=== PATIENT | male | born 1945 | race Hispanic/Latino ===

== ENCOUNTER 2020-10-22 13:30 | Inpatient (IN) | payer MEDICARE ==
--- NOTE | 2020-10-23 08:11 | History and Physical Report ---
GP History & Physical - History of Present Illness Date of admission: 10/22/20 Date of Examination: 10/23/20 Reason for Admission: Danger to self, Severe anxiety/depression History of Present Illness: PSYCH HPI Patient is a retired 75 year old female with PSHx of Depression and PMHx of CABG x3, restless leg syndorme, parkinsons, and HTN who was admitted to [facility] from another facility after suicide attempt by OD on tylenol up to 30 pills. Patient reports taking the action because he was bringing shame unto his family, and kids. Patient statees he is tired of haivng his family bear his problems and having to answer for him all the time. Patient states he currently has felony charges on him for child porn back in February, his out on bail now, but to avoid conviction he decided it would be best if he just and kill self so that way he wont be convicted and charges would dissappear. PAST PSYCHIATRIC HISTORY Diagnoses: Depression Suicide attempts or Self-harm behavior: yes Prior psychiatric hospitalizations: none Substance Abuse history: alcohol seldomly use Previous psychiatric medications tried: ZOloft Outpatient treatment: none PAST MEDICAL HISTORY: CABG x3, restless leg syndorme, parkinsons, and HTN Family Psychiatric History: None reported or documented SOCIAL HISTORY Marital Status: Living Arrangements: with Employment Status: retired Access to guns/weapons: none reported Education: masters History of Abuse: none Legal History: yes REVIEW OF SYSTEMS Constitutional: Negative for weight loss ENT: Negative for stridor Respiratory: Negative for cough or hemoptysis All other systems reviewed and are negative MENTAL STATUS EXAMINATION General Appearance and Behavior: Age appropriate, good hygiene, wearing appropriate clothes,, good eye contact Cooperation: Participating/engaged, but Guarded Psychomotor Behavior: Psychomotor normal Mood: depressed Affect and affective range: irritable, labile Thought Process: illogical Thought Content: hopelessness, helplessness Speech: Normal rate, volume and rythm Intellectual Functioning: Average Suicidal Ideation: SI Homicidal Ideation: Denies HI Impulse Control: Impaired Insight and Judgment: Limited insight and judgment Memory: Normal Attention: Normal Orientation: Alert, oriented Diagnoses: Treatment Plan Resume Zoloft Patient admitted for inpatient psychiatric evaluation, medication adjustment and close monitoring The patient's behavior, mood, sleep and appetite will be closely monitored. Patient enrolled in individual and group therapeutic sessions and encouraged to attend. Patient provided with a safe and structured environment. Patient's physical health needs will be addressed by the Hospitalist. Hospitalist Consulted Labs including CBC, CMP, Lipid profile and Hemoglobin A1C levels ordered for baseline reference Social Assessment will be completed and the Supervisor Contingents will work with patient and family to ensure a suitable and safe disposition Medication adjustment will be made as clinically indicated Usual Wellness Amish/Preservation: - Start Trazodone 50 mg po QHS & 50 mg po QHS PRN between 10 PM & 2 AM for insomnia - Start Melatonin 5 mg po QHS to promote circadian rhythm - Start [place]-3 for brain health, reduce impulsivity, and as adjunctive treatment for mood disorder, continue upon discharge given overall benefits. - Start B1 prophylaxis with 200 mg po for 5 days The patient agreed on the treatment plan, understood the risk, benefit, alternative treatment, potential consequence of no treatment, and gave informed consent. Initial Certification Inpatient psych services: I certify that the inpatient psychiatric services are required for treatment that could reasonably be expected to improve the patient's condition. Estimated days: 7 Post hospital care: primary care provider, psychiatric provider Legal Status: Other Reaction to Hospitalization: Denial Medications and Allergies Allergies Allergy/AdvReac Type Severity Reaction Status Date / Time No Known Allergies Allergy Unverified 10/22/20 16:39 Results - Results Labs/Vitals: Last Vital Signs Temp 98.6 F 10/23/20 03:46 Pulse 81 10/23/20 03:46 Resp 18 10/23/20 03:46 BP 146/84 10/23/20 03:46 Pulse Ox 97 10/23/20 03:46 Physical Examination - Constitutional Vitals: Vital Signs Temp Pulse Resp BP Pulse Ox 98.6 F 81 18 146/84 97 10/23/20 03:46 10/23/20 03:46 10/23/20 03:46 10/23/20 03:46 10/23/20 03:46 Temperature -Last 24 Hours Temperature 98.6 F Mental Status Exam - Vital signs Last Vital Signs Temp 98.6 F 10/23/20 03:46 Pulse 81 10/23/20 03:46 Resp 18 10/23/20 03:46 BP 146/84 10/23/20 03:46 Pulse Ox 97 10/23/20 03:46 Physician Certification - Certification Statement Physician Certification Statement: This is an acknowledgement statement that ANKIT WEST is a 75 year old M who requires inpatient psychiatric admission for treatment which could reasonably be expected to improve the patient's condition for Estimated period of time patient will need to remain in the hospital: [ ] Plan for post-hospital care: [ ]
[2020-10-23 10:08] LABS: Basophils % (Auto) 0.4 % (0.0-1.8); Eosinophils % (Auto) 0.1 % (0.0-4.3); Hematocrit 44.1 % (35.5-45.6); Lymphocytes % (Auto) 8.5 % (13.4-35.0); Mean Corpuscular HGB Conc 34 % (32-34); Mean Corpuscular Volume 89 fl (84-94); Monocytes % (Auto) 8.9 % (0.0-7.3); Platelet Count 195 K/mm3 (140-440); Red Blood Count 4.95 M/mm3 (3.65-5.03); Red Cell Distribution Width 13.4 % (13.2-15.2)
[2020-10-23 10:25] LABS: Alanine Aminotransferase 27 units/L (7-56); Albumin 3.7 g/dL (3.9-5); BUN/Creatinine Ratio 21; Blood Urea Nitrogen 17 mg/dL (9-20); Calcium 8.8 mg/dL (8.4-10.2); HDL Cholesterol 43 mg/dL (40-59); Hemolysis Index 29; LDL Cholesterol,Direct 74 mg/dL (50-130)
[2020-10-23] MEDS: SERTRALINE 50 MG TAB PO SCH (11:15)
--- NOTE | 2020-10-23 14:31 | Consultation ---
History of Present Illness - Reason for Consult Consult date: 10/23/20 Medical management Requesting physician: BONY JOHNSON - History of Present Illness 75 YO Male with Vascular Dementia with Behavioral Disturbance, Cerebral Atherosclerosis, HTN, CAD, Restless Leg Syndrome, Parkinsons Disease, Depression admitted to [facility] for Psychiatric stabilization. Consult placed by Dr. Johnson for medical management. The patient was seen and evaluated in his room. Patient resting. Patient denies fever, chills, chest pain, palpitation, productive cough, skin rash, recent ill contacts, or known exposure to COVID-19. No reported nursing events. Past History Past Medical History: CAD, hypertension, other (See HPI) Medications and Allergies Allergies Allergy/AdvReac Type Severity Reaction Status Date / Time No Known Allergies Allergy Unverified 10/22/20 16:39 Active Meds: Active Medications Melatonin (Melatonin 5 Mg Tab) 5 mg PO QHS PRN PRN Reason: Sleep Sertraline HCl (Sertraline 50 Mg Tab) 50 mg PO QDAY ERIKA Review of Systems Constitutional: no weight loss, no weight gain, no fever, no chills Ears, nose, mouth and throat: no ear pain, no ear discharge, no tinnitis, no decreased hearing Cardiovascular: no chest pain, no orthopnea, no edema, no lightheadedness Respiratory: no cough, no cough with sputum, no hemoptysis, no shortness of breath Gastrointestinal: no abdominal pain, no nausea, no vomiting Genitourinary Male: no hematuria, no flank pain, no discharge, no urinary frequency, no urinary hesitancy Rectal: no pain, no incontinence, no bleeding Musculoskeletal: no neck pain, no shooting arm pain, no low back pain, no leg numbness/tingling, no redness of joints Integumentary: no rash, no pruritis, no redness, no sores, no jaundice, no boils Neurological: no head injury, no paralysis, no weakness, no parathesias, no seizures, no tremors, no ataxia Psychiatric: depression, no change in appetite Endocrine: no cold intolerance, no heat intolerance, no polyphagia, no excessive thirst, no polyuria, no nocturia, no excessive sweating Hematologic/Lymphatic: no easy bruising, no easy bleeding, no lymphedema Allergic/Immunologic: no urticaria, no allergic rhinitis, no persistent infections, no angioedema Exam - Constitutional Vitals: Temp Pulse Resp BP Pulse Ox 98.7 F 95 H 16 117/73 97 10/23/20 07:43 10/23/20 07:43 10/23/20 07:43 10/23/20 07:43 10/23/20 07:43 General appearance: Present: no acute distress, well-nourished - EENT Eyes: Present: PERRL ENT: hearing intact, clear oral mucosa - Neck Neck: Present: supple, normal ROM - Respiratory Respiratory effort: normal Respiratory: bilateral: CTA - Cardiovascular Heart Sounds: Present: S1 & S2. Absent: rub, click - Extremities Extremities: pulses symmetrical, No edema Peripheral Pulses: within normal limits - Abdominal General gastrointestinal: Present: soft, non-tender, non-distended, normal bowel sounds Male genitourinary: Present: normal - Integumentary Integumentary: Present: clear, warm, dry - Musculoskeletal Musculoskeletal: gait normal, strength equal bilaterally - Psychiatric Psychiatric: appropriate mood/affect, intact judgment & insight - Neurologic Neurologic: CNII-XII intact, moves all extremities Results - Labs CBC & Chem 7: 10/23/20 09:43 10/23/20 09:43 Labs: Abnormal lab results 10/23/20 10/23/20 Range/Units 09:43 09:43 WBC 11.4 H (4.5-11.0) K/mm3 Lymph % (Auto) 8.5 L (13.4-35.0) % [place] % (Auto) 8.9 H (0.0-7.3) % Lymph # (Auto) 1.0 L (1.2-5.4) K/mm3 [place] # (Auto) 1.0 H (0.0-0.8) K/mm3 Seg Neutrophils % 82.1 H (40.0-70.0) % Seg Neutrophils # 9.3 H (1.8-7.7) K/mm3 Glucose 130 H (75-100) mg/dL Total Bilirubin 2.20 H (0.1-1.2) mg/dL AST 74 H (5-40) units/L Albumin 3.7 L (3.9-5) g/dL Assessment and Plan - Patient Problems (1) Hypertension Current Visit: Yes Status: Acute Qualifiers: Hypertension type: essential hypertension Qualified Code(s): I10 - Essential (primary) hypertension Plan to address problem: Monitor blood pressure every shift, continue medical management. (2) CAD (coronary artery disease) Current Visit: Yes Status: Acute Qualifiers: Associated angina: without angina Plan to address problem: Risk factor reduction, supportive care, antiplatelet therapy as clinically indicated. (3) Vascular dementia with behavioral disturbance Current Visit: Yes Status: Acute Plan to address problem: Verbal prompting, verbal redirection, benzodiazepine therapy as clinically indicated. (4) Cerebral atherosclerosis Current Visit: Yes Status: Acute Plan to address problem: Supportive care, antiplatelet therapy as clinically indicated, risk factor reduction.
[2020-10-23] MEDS ORDERED: CARBIDOPA/LEVODOPA 25-100 MG TAB PO SCH (22:00)
[2020-10-23] MEDS: GABAPENTIN 400 MG CAP PO SCH (22:56)
[2020-10-23] MEDS: LEVODOPA PO SCH (22:57)
[2020-10-23] MEDS: CARBIDOPA PO SCH (22:57)
[2020-10-23] MEDS: METOPROLOL SUCCINATE XL 50 MG TAB PO SCH (22:58)
[2020-10-23] MEDS ORDERED: traZODone 50 MG TAB PO ONE (23:30)
[2020-10-24] MEDS: CARBIDOPA PO SCH ×3 (10:58→20:50)
[2020-10-24] MEDS: LEVODOPA PO SCH ×3 (10:58→20:50)
[2020-10-24] MEDS: GABAPENTIN 400 MG CAP PO SCH ×3 (10:59→20:50)
[2020-10-24] MEDS: ASPIRIN 81 MG TAB CHEW PO SCH (10:59)
[2020-10-24] MEDS: SERTRALINE 50 MG TAB PO SCH (10:59)
[2020-10-24] MEDS: METOPROLOL SUCCINATE XL 50 MG TAB PO SCH (11:00)
--- NOTE | 2020-10-24 14:51 | Progress Note ---
Subjective Date of service: 10/24/20 Principal diagnosis: MDD Subjective Comment: Psych Nurse: Received patient at 1900 on 10/23. He had been placed on 1:1 observation due to his restlessness and inability to be still. The patient has an unsteady gait is not oriented to his ability. He will quickly jump out of a chair after agreeing to sit still. Last evening he was cooperative with his caregiver. He presents as confused. His appetite is poor. Patient denies hi/ah/vh but is still depressed regarding his health and his ability to care for himself. 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 Patient admitted to feeling helpless regarding "fixing" his health. He had a fair appetite. Patient was medication compliant. Hospitalist was called to get his medical medications ordered. Dr Karimi gave orders for Dr. Peguero to restart gabapentin, metoprolol, atorvastin, aspirin, and trazodone 50 mg x 1. Patient expressed he usually took requip for RLS but could not remember to dose. Overnight the patient rested quietly. He slept 8 hours. Will continue to monitor patient for safety. Psych Progress Patient states that he would like to be discharged home, because he is not getting all of the medication is supposed to get especially his restless leg syndrome medication in which patient does not know the name at this moment. Pt was seen by the hospitalist yesterday we will reconcilled patient's medications. Patient denies being depressed or having any suicidal thoughts at this moment REVIEW OF SYSTEMS Constitutional: Negative for weight loss ENT: Negative for stridor Respiratory: Negative for cough or hemoptysis All other systems reviewed and are negative MENTAL STATUS EXAMINATION General Appearance and Behavior: Age appropriate, good hygiene, wearing appropriate clothes,, good eye contact Cooperation: Participating/engaged, but Guarded Psychomotor Behavior: Psychomotor normal Mood: just ok Affect and affective range: flat Thought Process: logical Thought Content: within reality Speech: Normal rate, volume and rythm Intellectual Functioning: Average Suicidal Ideation: denies Homicidal Ideation: Denies HI Impulse Control: Impaired Insight and Judgment: Limited insight and judgment Memory: Normal Attention: Normal Orientation: Alert, oriented Assessment and Plan - Patient Problems (1) MDD (major depressive disorder) Current Visit: Yes Status: Acute F32.9 Treatment Plan Resume Zoloft Patient admitted for inpatient psychiatric evaluation, medication adjustment and close monitoring The patient's behavior, mood, sleep and appetite will be closely monitored. Patient enrolled in individual and group therapeutic sessions and encouraged to attend. Patient provided with a safe and structured environment. Patient's physical health needs will be addressed by the Hospitalist. Hospitalist Consulted Labs including CBC, CMP, Lipid profile and Hemoglobin A1C levels ordered for baseline reference Social Assessment will be completed and the Bat Carrier will work with patient and family to ensure a suitable and safe disposition Medication adjustment will be made as clinically indicated Usual Wellness Catholic/Preservation: - Start Trazodone 50 mg po QHS & 50 mg po QHS PRN between 10 PM & 2 AM for ins omnia - Start Melatonin 5 mg po QHS to promote circadian rhythm - Start [place]-3 for brain health, reduce impulsivity, and as adjunctive treatment for mood disorder, continue upon discharge given overall benefits. - Start B1 prophylaxis with 200 mg po for 5 days The patient agreed on the treatment plan, understood the risk, benefit, alternative treatment, potential consequence of no treatment, and gave informed consent. Initial Certification Inpatient psych services: I certify that the inpatient psychiatric services are required for treatment that could reasonably be expected to improve the patient's condition. Estimated days: 6 Post hospital care: primary care provider, psychiatric provider Assessment and Plan - Patient Problems (1) MDD (major depressive disorder) Current Visit: Yes Status: Acute Medications and Allergies Allergies Allergy/AdvReac Type Severity Reaction Status Date / Time No Known Allergies Allergy Unverified 10/22/20 16:39 Home Medications Medication Instructions Recorded Confirmed Last Taken Type Aspirin EC [Halfprin EC] 81 mg PO QDAY 10/24/20 10/24/20 Unknown History AtorvaSTATin [Lipitor] 20 mg PO QHS 10/24/20 10/24/20 Unknown History Carbidopa/Levodopa ER 50-200 2 each PO TID 10/24/20 10/24/20 Unknown History [Sinemet ER 50/200] Metoprolol Xl [Metoprolol 25 mg PO QDAY 10/24/20 10/24/20 Unknown History SUCCINATE ER TAB] rOPINIRole [Requip] 1 mg PO BID 10/24/20 10/24/20 Unknown History Active Meds: Active Medications Aspirin (Aspirin 81 Mg Tab Chew) 81 mg PO QDAY ERIKA Atorvastatin Calcium (Atorvastatin 20 Mg Tab) 20 mg PO QHS ERIKA Carbidopa/Levodopa (Carbidopa/Levodopa Er 50-200 Mg Tab) 2 each PO TID [facility] Last Admin: 10/23/20 22:57 Dose: 2 each Documented by: Gabapentin (Gabapentin 400 Mg Cap) 400 mg PO TID [facility] Last Admin: 10/23/20 22:56 Dose: 400 mg Documented by: Melatonin (Melatonin 5 Mg Tab) 5 mg PO QHS PRN PRN Reason: Sleep Metoprolol Succinate (Metoprolol Succinate Xl 50 Mg Tab) 25 mg PO QDAY [facility] Last Admin: 10/23/20 22:58 Dose: 25 mg Documented by: Sertraline HCl (Sertraline 50 Mg Tab) 50 mg PO QDAY [facility] Last Admin: 10/23/20 11:15 Dose: 50 mg Documented by: Results - Results Labs/Vitals: Laboratory Last Values WBC 11.4 K/mm3 (4.5-11.0) H 10/23/20 09:43 RBC 4.95 M/mm3 (3.65-5.03) 10/23/20 09:43 Hgb 15.0 gm/dl (11.8-15.2) 10/23/20 09:43 Hct 44.1 % (35.5-45.6) 10/23/20 09:43 MCV 89 fl (84-94) 10/23/20 09:43 MCH 30 pg (28-32) 10/23/20 09:43 MCHC 34 % (32-34) 10/23/20 09:43 RDW 13.4 % (13.2-15.2) 10/23/20 09:43 Plt Count 195 K/mm3 (140-440) 10/23/20 09:43 Lymph % (Auto) 8.5 % (13.4-35.0) L 10/23/20 09:43 [place] % (Auto) 8.9 % (0.0-7.3) H 10/23/20 09:43 Eos % (Auto) 0.1 % (0.0-4.3) 10/23/20 09:43 Baso % (Auto) 0.4 % (0.0-1.8) 10/23/20 09:43 Lymph # (Auto) 1.0 K/mm3 (1.2-5.4) L 10/23/20 09:43 [place] # (Auto) 1.0 K/mm3 (0.0-0.8) H 10/23/20 09:43 Eos # (Auto) 0.0 K/mm3 (0.0-0.4) 10/23/20 09:43 Baso # (Auto) 0.0 K/mm3 (0.0-0.1) 10/23/20 09:43 Seg Neutrophils % 82.1 % (40.0-70.0) H 10/23/20 09:43 Seg Neutrophils # 9.3 K/mm3 (1.8-7.7) H 10/23/20 09:43 Sodium 140 mmol/L (137-145) 10/23/20 09:43 Potassium 4.0 mmol/L (3.6-5.0) 10/23/20 09:43 Chloride 101.5 mmol/L (98-107) 10/23/20 09:43 Carbon Dioxide 30 mmol/L (22-30) 10/23/20 09:43 Anion Gap 13 mmol/L 10/23/20 09:43 BUN 17 mg/dL (9-20) 10/23/20 09:43 Creatinine 0.8 mg/dL (0.8-1.3) 10/23/20 09:43 Estimated GFR > 60 ml/min 10/23/20 09:43 BUN/Creatinine Ratio 21 % 10/23/20 09:43 Glucose 130 mg/dL (75-100) H 10/23/20 09:43 Hemoglobin A1c 5.6 % (4-6) 10/23/20 09:43 Calcium 8.8 mg/dL (8.4-10.2) 10/23/20 09:43 Total Bilirubin 2.20 mg/dL (0.1-1.2) H 10/23/20 09:43 AST 74 units/L (5-40) H 10/23/20 09:43 ALT 27 units/L (7-56) 10/23/20 09:43 Alkaline Phosphatase 97 units/L (35-129) 10/23/20 09:43 Total Protein 6.7 g/dL (6.3-8.2) 10/23/20 09:43 Albumin 3.7 g/dL (3.9-5) L 10/23/20 09:43 Albumin/Globulin Ratio 1.2 % 10/23/20 09:43 Triglycerides 82 mg/dL (2-149) 10/23/20 09:43 Cholesterol 125 mg/dL (50-199) 10/23/20 09:43 LDL Cholesterol Direct 74 mg/dL (50-130) 10/23/20 09:43 HDL Cholesterol 43 mg/dL (40-59) 10/23/20 09:43 Cholesterol/HDL Ratio 2.90 % 10/23/20 09:43 Last Vital Signs Temp 100 F H 10/23/20 22:00 Pulse 100 H 10/23/20 22:58 Resp 18 10/23/20 22:00 BP 126/71 10/23/20 22:58 Pulse Ox 95 10/23/20 22:00
--- NOTE | 2020-10-25 10:09 | Progress Note ---
Subjective Date of service: 10/25/20 Principal diagnosis: MDD Subjective Comment: Psych Nurse: Patient is awake alert oriented to name, unsteady gait, pt is not oriented to his ability. He will quickly jump out of a chair after agreeing to sit. He presents as confused. His appetite is good, he denies si/hi/ah/vh, he was medication compliant. Currently siting in the dayroom watching tv, sitter at side. Will continue to monitor patient for safety. Psych Progress Patient seen this a.m., reports feeling very good and endorses sleeping very well overnight. Patient states that restless leg has been bothering him for the last 3 days since he has been without his medication but seems like yesterday and it was the first time he got a pretty good sleep. Patient reports speaking with , says he was very glad he was able to reach his states that he is not feeling depressed or suicidal at the moment, he would like to be discharged today he can continue his outpatient therapy at [facility] services back in [place] Reason for continuing acute inpatient psychiatric hospitalization: Planning for safety discharge at this time with outpatient therapy. REVIEW OF SYSTEMS Constitutional: Negative for weight loss ENT: Negative for stridor Respiratory: Negative for cough or hemoptysis All other systems reviewed and are negative MENTAL STATUS EXAMINATION General Appearance and Behavior: Age appropriate, good hygiene, wearing appropriate clothes,, good eye contact Cooperation: Participating/engaged, but Guarded Psychomotor Behavior: Psychomotor normal Mood: just ok Affect and affective range: flat Thought Process: logical Thought Content: within reality Speech: Normal rate, volume and rythm Intellectual Functioning: Average Suicidal Ideation: denies Homicidal Ideation: Denies HI Impulse Control: Impaired Insight and Judgment: Limited insight and judgment Memory: Normal Attention: Normal Orientation: Alert, oriented Assessment and Plan - Patient Problems (1) MDD (major depressive disorder) Current Visit: Yes Status: Acute F32.9 Treatment Plan Resume Zoloft Patient admitted for inpatient psychiatric evaluation, medication adjustment and close monitoring The patient's behavior, mood, sleep and appetite will be closely monitored. Patient enrolled in individual and group therapeutic sessions and encouraged to attend. Patient provided with a safe and structured environment. Patient's physical health needs will be addressed by the Hospitalist. Hospitalist Consulted Labs including CBC, CMP, Lipid profile and Hemoglobin A1C levels ordered for baseline reference Social Assessment will be completed and the Bicycle Messenger will work with jacob ent and family to ensure a suitable and safe disposition Medication adjustment will be made as clinically indicated Usual Wellness Mosque/Preservation: - Start Trazodone 50 mg po QHS & 50 mg po QHS PRN between 10 PM & 2 AM for insomnia - Start Melatonin 5 mg po QHS to promote circadian rhythm - Start [place]-3 for brain health, reduce impulsivity, and as adjunctive treatment for mood disorder, continue upon discharge given overall benefits. - Start B1 prophylaxis with 200 mg po for 5 days The patient agreed on the treatment plan, understood the risk, benefit, alternative treatment, potential consequence of no treatment, and gave informed consent. Initial Certification Inpatient psych services: I certify that the inpatient psychiatric services are required for treatment that could reasonably be expected to improve the patient's condition. Estimated days: 5 Post hospital care: primary care provider, psychiatric provider Assessment and Plan - Patient Problems (1) MDD (major depressive disorder) Current Visit: Yes Status: Acute Medications and Allergies Allergies Allergy/AdvReac Type Severity Reaction Status Date / Time No Known Allergies Allergy Unverified 10/22/20 16:39 Home Medications Medication Instructions Recorded Confirmed Last Taken Type Aspirin EC [Halfprin EC] 81 mg PO QDAY 10/24/20 10/24/20 Unknown History AtorvaSTATin [Lipitor] 20 mg PO QHS 10/24/20 10/24/20 Unknown History Carbidopa/Levodopa ER 50-200 2 each PO TID 10/24/20 10/24/20 Unknown History [Sinemet ER 50/200] Metoprolol Xl [Metoprolol 25 mg PO QDAY 10/24/20 10/24/20 Unknown History SUCCINATE ER TAB] rOPINIRole [Requip] 1 mg PO BID 10/24/20 10/24/20 Unknown History Active Meds: Active Medications Aspirin (Aspirin 81 Mg Tab Chew) 81 mg PO QDAY [facility] Last Admin: 10/24/20 10:59 Dose: 81 mg Documented by: Atorvastatin Calcium (Atorvastatin 20 Mg Tab) 20 mg PO QHS [facility] Last Admin: 10/24/20 21:30 Dose: 20 mg Documented by: Carbidopa/Levodopa (Carbidopa/Levodopa Er 50-200 Mg Tab) 2 each PO TID [facility] Last Admin: 10/24/20 20:50 Dose: 2 each Documented by: Gabapentin (Gabapentin 400 Mg Cap) 400 mg PO TID [facility] Last Admin: 10/24/20 20:50 Dose: 400 mg Documented by: Melatonin (Melatonin 5 Mg Tab) 5 mg PO QHS PRN PRN Reason: Sleep Metoprolol Succinate (Metoprolol Succinate Xl 50 Mg Tab) 25 mg PO QDAY [facility] Last Admin: 10/24/20 11:00 Dose: Not Given Documented by: Sertraline HCl (Sertraline 50 Mg Tab) 50 mg PO QDAY [facility] Last Admin: 10/24/20 10:59 Dose: 50 mg Documented by: Results - Results Labs/Vitals: Laboratory Last Values WBC 11.4 K/mm3 (4.5-11.0) H 10/23/20 09:43 RBC 4.95 M/mm3 (3.65-5.03) 10/23/20 09:43 Hgb 15.0 gm/dl (11.8-15.2) 10/23/20 09:43 Hct 44.1 % (35.5-45.6) 10/23/20 09:43 MCV 89 fl (84-94) 10/23/20 09:43 MCH 30 pg (28-32) 10/23/20 09:43 MCHC 34 % (32-34) 10/23/20 09:43 RDW 13.4 % (13.2-15.2) 10/23/20 09:43 Plt Count 195 K/mm3 (140-440) 10/23/20 09:43 Lymph % (Auto) 8.5 % (13.4-35.0) L 10/23/20 09:43 [place] % (Auto) 8.9 % (0.0-7.3) H 10/23/20 09:43 Eos % (Auto) 0.1 % (0.0-4.3) 10/23/20 09:43 Baso % (Auto) 0.4 % (0.0-1.8) 10/23/20 09:43 Lymph # (Auto) 1.0 K/mm3 (1.2-5.4) L 10/23/20 09:43 [place] # (Auto) 1.0 K/mm3 (0.0-0.8) H 10/23/20 09:43 Eos # (Auto) 0.0 K/mm3 (0.0-0.4) 10/23/20 09:43 Baso # (Auto) 0.0 K/mm3 (0.0-0.1) 10/23/20 09:43 Seg Neutrophils % 82.1 % (40.0-70.0) H 10/23/20 09:43 Seg Neutrophils # 9.3 K/mm3 (1.8-7.7) H 10/23/20 09:43 Sodium 140 mmol/L (137-145) 10/23/20 09:43 Potassium 4.0 mmol/L (3.6-5.0) 10/23/20 09:43 Chloride 101.5 mmol/L (98-107) 10/23/20 09:43 Carbon Dioxide 30 mmol/L (22-30) 10/23/20 09:43 Anion Gap 13 mmol/L 10/23/20 09:43 BUN 17 mg/dL (9-20) 10/23/20 09:43 Creatinine 0.8 mg/dL (0.8-1.3) 10/23/20 09:43 Estimated GFR > 60 ml/min 10/23/20 09:43 BUN/Creatinine Ratio 21 % 10/23/20 09:43 Glucose 130 mg/dL (75-100) H 10/23/20 09:43 Hemoglobin A1c 5.6 % (4-6) 10/23/20 09:43 Calcium 8.8 mg/dL (8.4-10.2) 10/23/20 09:43 Total Bilirubin 2.20 mg/dL (0.1-1.2) H 10/23/20 09:43 AST 74 units/L (5-40) H 10/23/20 09:43 ALT 27 units/L (7-56) 10/23/20 09:43 Alkaline Phosphatase 97 units/L (35-129) 10/23/20 09:43 Total Protein 6.7 g/dL (6.3-8.2) 10/23/20 09:43 Albumin 3.7 g/dL (3.9-5) L 10/23/20 09:43 Albumin/Globulin Ratio 1.2 % 10/23/20 09:43 Triglycerides 82 mg/dL (2-149) 10/23/20 09:43 Cholesterol 125 mg/dL (50-199) 10/23/20 09:43 LDL Cholesterol Direct 74 mg/dL (50-130) 10/23/20 09:43 HDL Cholesterol 43 mg/dL (40-59) 10/23/20 09:43 Cholesterol/HDL Ratio 2.90 % 10/23/20 09:43 Last Vital Signs Temp 100.4 F H 10/24/20 10:02 Pulse 93 H 10/24/20 11:00 Resp 20 10/24/20 10:02 BP 103/56 10/24/20 11:00 Pulse Ox 96 10/24/20 10:02
[2020-10-25] MEDS: GABAPENTIN 400 MG CAP PO SCH ×3 (10:54→22:31)
[2020-10-25] MEDS: ASPIRIN 81 MG TAB CHEW PO SCH (10:54)
[2020-10-25] MEDS: SERTRALINE 50 MG TAB PO SCH (10:54)
[2020-10-25] MEDS: LEVODOPA PO SCH ×3 (10:55→22:31)
[2020-10-25] MEDS: CARBIDOPA PO SCH ×3 (10:55→22:31)
[2020-10-25] MEDS: METOPROLOL SUCCINATE XL 50 MG TAB PO SCH (10:55)
[2020-10-26] MEDS: GABAPENTIN 400 MG CAP PO SCH ×3 (08:09→22:00)
[2020-10-26] MEDS: LEVODOPA PO SCH ×3 (08:11→22:00)
[2020-10-26] MEDS: CARBIDOPA PO SCH ×3 (08:11→22:00)
--- NOTE | 2020-10-26 08:56 | Progress Note ---
Subjective Date of service: 10/26/20 Principal diagnosis: MDD Subjective Comment: Psych Nurse: Patient slept late this morning. He spent the day in the activity room interacting with his peers. He missed breakfast but ate lunch and dinner. The patient denies si/hi/ah/vh. He is medication compliant. Will continue to monitor patient for safety. Psych Progress Patient seen this AM in bed, complaints of not showerring in over a week, though he states wet towel was used to clean him up which is okay but for him, he still would like to shower. Patient describes a good and stable mood, denies being depressed or excessively nervous. Patient eats and sleeps well. Patient denies panic attacks, recurrent nightmares or flashbacks. Patient denies symptoms suggestive of OCD or PTSD. Patient denies hallucinations, paranoia, thought interference and no features suggestive of hypomania or solomon. Patiently completely denies suicidal or homicidal thoughts. Reason for continuing acute inpatient psychiatric hospitalization: Planning for safety discharge at this time with outpatient therapy. REVIEW OF SYSTEMS Constitutional: Negative for weight loss ENT: Negative for stridor Respiratory: Negative for cough or hemoptysis All other systems reviewed and are negative MENTAL STATUS EXAMINATION General Appearance and Behavior: Age appropriate, good hygiene, wearing appropriate clothes,, good eye contact Cooperation: Participating/engaged, but Guarded Psychomotor Behavior: Psychomotor normal Mood: just ok Affect and affective range: flat Thought Process: logical Thought Content: within reality Speech: Normal rate, volume and rythm Intellectual Functioning: Average Suicidal Ideation: denies Homicidal Ideation: Denies HI Impulse Control: Impaired Insight and Judgment: Limited insight and judgment Memory: Normal Attention: Normal Orientation: Alert, oriented Assessment and Plan - Patient Problems (1) MDD (major depressive disorder) Current Visit: Yes Status: Acute F32.9 Treatment Plan Resume Zoloft Patient admitted for inpatient psychiatric evaluation, medication adjustment and close monitoring The patient's behavior, mood, sleep and appetite will be closely monitored. Patient enrolled in individual and group therapeutic sessions and encouraged to attend. Patient provided with a safe and structured environment. Patient's physical health needs will be addressed by the Hospitalist. Hospitalist Consulted Labs including CBC, CMP, Lipid profile and Hemoglobin A1C levels ordered for baseline reference Social Assessment will be completed and the Solar Water Heater Installer will work with patient and family to ensure a suitable and safe disposition Medication adjustment will be made as clinically indicated Usual Wellness Christianity/Preservation: - Start Trazodone 50 mg po QHS & 50 mg po QHS PRN between 10 PM & 2 AM for insomnia - Start Melatonin 5 mg po QHS to promote circadian rhythm - Start [place]-3 for brain health, reduce impulsivity, and as adjunctive treatment for mood disorder, continue upon discharge given overall benefits. - Start B1 prophylaxis with 200 mg po for 5 days The patient agreed on the treatment plan, understood the risk, benefit, alternative treatment, potential consequence of no treatment, and gave informed consent. Initial Certification Inpatient psych services: I certify that the inpatient psychiatric services are required for treatment that could reasonably be expected to improve the patient's condition. Estimated days: 4 Post hospital care: primary care provider, psychiatric provider Assessment and Plan - Patient Problems (1) MDD (major depressive disorder) Current Visit: Yes Status: Acute Medications and Allergies Allergies Allergy/AdvReac Type Severity Reaction Status Date / Time No Known Allergies Allergy Unverified 10/22/20 16:39 Home Medications Medication Instructions Recorded Confirmed Last Taken Type Aspirin EC [Halfprin EC] 81 mg PO QDAY 10/24/20 10/24/20 Unknown History AtorvaSTATin [Lipitor] 20 mg PO QHS 10/24/20 10/24/20 Unknown History Carbidopa/Levodopa ER 50-200 2 each PO TID 10/24/20 10/24/20 Unknown History [Sinemet ER 50/200] Metoprolol Xl [Metoprolol 25 mg PO QDAY 10/24/20 10/24/20 Unknown History SUCCINATE ER TAB] rOPINIRole [Requip] 1 mg PO BID 10/24/20 10/24/20 Unknown History Active Meds: Active Medications Aspirin (Aspirin 81 Mg Tab Chew) 81 mg PO QDAY [facility] Last Admin: 10/25/20 10:54 Dose: 81 mg Documented by: Atorvastatin Calcium (Atorvastatin 20 Mg Tab) 20 mg PO QHS [facility] Last Admin: 10/25/20 22:30 Dose: 20 mg Documented by: Carbidopa/Levodopa (Carbidopa/Levodopa Er 50-200 Mg Tab) 2 each PO TID [facility] Last Admin: 10/25/20 22:31 Dose: 2 each Documented by: Gabapentin (Gabapentin 400 Mg Cap) 400 mg PO TID [facility] Last Admin: 10/25/20 22:31 Dose: 400 mg Documented by: Melatonin (Melatonin 5 Mg Tab) 5 mg PO QHS PRN PRN Reason: Sleep Metoprolol Succinate (Metoprolol Succinate Xl 50 Mg Tab) 25 mg PO QDAY [facility] Last Admin: 10/25/20 10:55 Dose: 25 mg Documented by: Sertraline HCl (Sertraline 50 Mg Tab) 50 mg PO QDAY [facility] Last Admin: 10/25/20 10:54 Dose: 50 mg Documented by: Results - Results Labs/Vitals: Laboratory Last Values WBC 11.4 K/mm3 (4.5-11.0) H 10/23/20 09:43 RBC 4.95 M/mm3 (3.65-5.03) 10/23/20 09:43 Hgb 15.0 gm/dl (11.8-15.2) 10/23/20 09:43 Hct 44.1 % (35.5-45.6) 10/23/20 09:43 MCV 89 fl (84-94) 10/23/20 09:43 MCH 30 pg (28-32) 10/23/20 09:43 MCHC 34 % (32-34) 10/23/20 09:43 RDW 13.4 % (13.2-15.2) 10/23/20 09:43 Plt Count 195 K/mm3 (140-440) 10/23/20 09:43 Lymph % (Auto) 8.5 % (13.4-35.0) L 10/23/20 09:43 [place] % (Auto) 8.9 % (0.0-7.3) H 10/23/20 09:43 Eos % (Auto) 0.1 % (0.0-4.3) 10/23/20 09:43 Baso % (Auto) 0.4 % (0.0-1.8) 10/23/20 09:43 Lymph # (Auto) 1.0 K/mm3 (1.2-5.4) L 10/23/20 09:43 [place] # (Auto) 1.0 K/mm3 (0.0-0.8) H 10/23/20 09:43 Eos # (Auto) 0.0 K/mm3 (0.0-0.4) 10/23/20 09:43 Baso # (Auto) 0.0 K/mm3 (0.0-0.1) 10/23/20 09:43 Seg Neutrophils % 82.1 % (40.0-70.0) H 10/23/20 09:43 Seg Neutrophils # 9.3 K/mm3 (1.8-7.7) H 10/23/20 09:43 Sodium 140 mmol/L (137-145) 10/23/20 09:43 Potassium 4.0 mmol/L (3.6-5.0) 10/23/20 09:43 Chloride 101.5 mmol/L (98-107) 10/23/20 09:43 Carbon Dioxide 30 mmol/L (22-30) 10/23/20 09:43 Anion Gap 13 mmol/L 10/23/20 09:43 BUN 17 mg/dL (9-20) 10/23/20 09:43 Creatinine 0.8 mg/dL (0.8-1.3) 10/23/20 09:43 Estimated GFR > 60 ml/min 10/23/20 09:43 BUN/Creatinine Ratio 21 % 10/23/20 09:43 Glucose 130 mg/dL (75-100) H 10/23/20 09:43 Hemoglobin A1c 5.6 % (4-6) 10/23/20 09:43 Calcium 8.8 mg/dL (8.4-10.2) 10/23/20 09:43 Total Bilirubin 2.20 mg/dL (0.1-1.2) H 10/23/20 09:43 AST 74 units/L (5-40) H 10/23/20 09:43 ALT 27 units/L (7-56) 10/23/20 09:43 Alkaline Phosphatase 97 units/L (35-129) 10/23/20 09:43 Total Protein 6.7 g/dL (6.3-8.2) 10/23/20 09:43 Albumin 3.7 g/dL (3.9-5) L 10/23/20 09:43 Albumin/Globulin Ratio 1.2 % 10/23/20 09:43 Triglycerides 82 mg/dL (2-149) 10/23/20 09:43 Cholesterol 125 mg/dL (50-199) 10/23/20 09:43 LDL Cholesterol Direct 74 mg/dL (50-130) 10/23/20 09:43 HDL Cholesterol 43 mg/dL (40-59) 10/23/20 09:43 Cholesterol/HDL Ratio 2.90 % 10/23/20 09:43 Last Vital Signs Temp 99.3 F 10/25/20 20:08 Pulse 94 H 10/25/20 20:08 Resp 20 10/25/20 20:08 BP 138/75 10/25/20 20:08 Pulse Ox 96 10/25/20 20:08
[2020-10-26] MEDS: ASPIRIN 81 MG TAB CHEW PO SCH (09:33)
[2020-10-26] MEDS: SERTRALINE 50 MG TAB PO SCH (09:33)
[2020-10-26] MEDS: METOPROLOL SUCCINATE XL 50 MG TAB PO SCH (09:35)
--- NOTE | 2020-10-26 20:32 | Progress Note ---
Assessment and Plan - Patient Problems (1) Hypertension Current Visit: Yes Status: Acute Qualifiers: Hypertension type: essential hypertension Qualified Code(s): I10 - Essential (primary) hypertension Plan to address problem: Monitor blood pressure every shift, continue medical management. (2) CAD (coronary artery disease) Current Visit: Yes Status: Acute Qualifiers: Associated angina: without angina Plan to address problem: Risk factor reduction, supportive care, antiplatelet therapy as clinically indicated. (3) Vascular dementia with behavioral disturbance Current Visit: Yes Status: Acute Plan to address problem: Verbal prompting, verbal redirection, benzodiazepine therapy as clinically indicated. (4) Cerebral atherosclerosis Current Visit: Yes Status: Acute Plan to address problem: Supportive care, antiplatelet therapy as clinically indicated, risk factor redu ction. History Interval history: 75 YO Male with Vascular Dementia with Behavioral Disturbance, Cerebral Atherosclerosis, HTN, CAD, Restless Leg Syndrome, Parkinsons Disease, Depression admitted to [facility] for Psychiatric stabilization. The patient was seen and evaluated in his room. Patient resting. No reported nursing events. Hospitalist Physical - Constitutional Vitals: Temp Pulse Resp BP Pulse Ox 100.1 F H 85 18 126/72 95 10/26/20 10:54 10/26/20 10:54 10/26/20 10:54 10/26/20 10:54 10/26/20 10:54 General appearance: Present: no acute distress, well-nourished - EENT Eyes: Present: PERRL, EOM intact ENT: hearing intact, hearing decreased - Neck Neck: Present: supple - Respiratory Respiratory effort: normal Respiratory: bilateral: CTA - Cardiovascular Rhythm: regular Heart Sounds: Present: S1 & S2 - Extremities Extremities: no ischemia Peripheral Pulses: within normal limits - Abdominal General gastrointestinal: soft, non-tender, non-distended - Integumentary Integumentary: Present: clear, dry - Psychiatric Psychiatric: cooperative - Neurologic Neurologic: CNII-XII intact Results - Labs CBC & Chem 7: 10/23/20 09:43 10/23/20 09:43 Labs: Laboratory Last Values WBC 11.4 K/mm3 (4.5-11.0) H 10/23/20 09:43 RBC 4.95 M/mm3 (3.65-5.03) 10/23/20 09:43 Hgb 15.0 gm/dl (11.8-15.2) 10/23/20 09:43 Hct 44.1 % (35.5-45.6) 10/23/20 09:43 MCV 89 fl (84-94) 10/23/20 09:43 MCH 30 pg (28-32) 10/23/20 09:43 MCHC 34 % (32-34) 10/23/20 09:43 RDW 13.4 % (13.2-15.2) 10/23/20 09:43 Plt Count 195 K/mm3 (140-440) 10/23/20 09:43 Lymph % (Auto) 8.5 % (13.4-35.0) L 10/23/20 09:43 [place] % (Auto) 8.9 % (0.0-7.3) H 10/23/20 09:43 Eos % (Auto) 0.1 % (0.0-4.3) 10/23/20 09:43 Baso % (Auto) 0.4 % (0.0-1.8) 10/23/20 09:43 Lymph # (Auto) 1.0 K/mm3 (1.2-5.4) L 10/23/20 09:43 [place] # (Auto) 1.0 K/mm3 (0.0-0.8) H 10/23/20 09:43 Eos # (Auto) 0.0 K/mm3 (0.0-0.4) 10/23/20 09:43 Baso # (Auto) 0.0 K/mm3 (0.0-0.1) 10/23/20 09:43 Seg Neutrophils % 82.1 % (40.0-70.0) H 10/23/20 09:43 Seg Neutrophils # 9.3 K/mm3 (1.8-7.7) H 10/23/20 09:43 Sodium 140 mmol/L (137-145) 10/23/20 09:43 Potassium 4.0 mmol/L (3.6-5.0) 10/23/20 09:43 Chloride 101.5 mmol/L (98-107) 10/23/20 09:43 Carbon Dioxide 30 mmol/L (22-30) 10/23/20 09:43 Anion Gap 13 mmol/L 10/23/20 09:43 BUN 17 mg/dL (9-20) 10/23/20 09:43 Creatinine 0.8 mg/dL (0.8-1.3) 10/23/20 09:43 Estimated GFR > 60 ml/min 10/23/20 09:43 BUN/Creatinine Ratio 21 % 10/23/20 09:43 Glucose 130 mg/dL (75-100) H 10/23/20 09:43 Hemoglobin A1c 5.6 % (4-6) 10/23/20 09:43 Calcium 8.8 mg/dL (8.4-10.2) 10/23/20 09:43 Total Bilirubin 2.20 mg/dL (0.1-1.2) H 10/23/20 09:43 AST 74 units/L (5-40) H 10/23/20 09:43 ALT 27 units/L (7-56) 10/23/20 09:43 Alkaline Phosphatase 97 units/L (35-129) 10/23/20 09:43 Total Protein 6.7 g/dL (6.3-8.2) 10/23/20 09:43 Albumin 3.7 g/dL (3.9-5) L 10/23/20 09:43 Albumin/Globulin Ratio 1.2 % 10/23/20 09:43 Triglycerides 82 mg/dL (2-149) 10/23/20 09:43 Cholesterol 125 mg/dL (50-199) 10/23/20 09:43 LDL Cholesterol Direct 74 mg/dL (50-130) 10/23/20 09:43 HDL Cholesterol 43 mg/dL (40-59) 10/23/20 09:43 Cholesterol/HDL Ratio 2.90 % 10/23/20 09:43 Key/IV: Voiding Method Diaper Active Medications - Current Medications Current Medications: Generic Name Dose Route Start Last Admin Trade Name Freq PRN Reason Stop Dose Admin Aspirin 81 mg 10/24/20 10:00 10/26/20 09:33 Aspirin 81 Mg Tab Chew PO 81 mg QDAY ERIKA Administration Atorvastatin Calcium 20 mg 10/24/20 22:00 10/25/20 22:30 Atorvastatin 20 Mg Tab PO 20 mg QHS ERIKA Administration Carbidopa/Levodopa 2 each 10/23/20 23:00 10/26/20 14:00 Carbidopa/Levodopa Er 50-200 Mg Tab PO 2 each TID ERIKA Administration Gabapentin 400 mg 10/23/20 23:00 10/26/20 14:00 Gabapentin 400 Mg Cap PO 400 mg TID ERIKA Administration Melatonin 5 mg 10/23/20 22:00 Melatonin 5 Mg Tab PO QHS PRN Sleep Metoprolol Succinate 25 mg 10/23/20 23:00 10/26/20 09:35 Metoprolol Succinate Xl 50 Mg Tab PO 25 mg QDAY ERIKA Administration Sertraline HCl 50 mg 10/23/20 10:00 10/26/20 09:33 Sertraline 50 Mg Tab PO 50 mg QDAY ERIKA Administration
[2020-10-26] MEDS: MELATONIN 5 MG TAB PO PRN (22:00)
--- NOTE | 2020-10-27 08:50 | Progress Note ---
Subjective Date of service: 10/27/20 Principal diagnosis: MDD Subjective Comment: Psych Nurse: Last evening the patient spent interacting with his peers. He was observed having a good time in conversation with them. He denies si/hi/ah/vh. His appetite is fair and he is medication compliant. He was able to follow directions about sitting until staff could assist him. Overnight the patient rested quietly. He slept 8 hours. Will continue to monitor patient for safety. Psych Progress Patient seen in a bright affect, says he is happy to be wearing home clothes today, reports slef grooming and getting dressed by self, and denies SI, HI or AVH. Reason for continuing acute inpatient psychiatric hospitalization: Planning for safety discharge at this time with outpatient therapy. REVIEW OF SYSTEMS Constitutional: Negative for weight loss ENT: Negative for stridor Respiratory: Negative for cough or hemoptysis All other systems reviewed and are negative MENTAL STATUS EXAMINATION General Appearance and Behavior: Age appropriate, good hygiene, wearing appropriate clothes,, good eye contact Cooperation: Participating/engaged, but Guarded Psychomotor Behavior: Psychomotor normal Mood: just ok Affect and affective range: flat Thought Process: logical Thought Content: within reality Speech: Normal rate, volume and rythm Intellectual Functioning: Average Suicidal Ideation: denies Homicidal Ideation: Denies HI Impulse Control: Impaired Insight and Judgment: Limited insight and judgment Memory: Normal Attention: Normal Orientation: Alert, oriented Assessment and Plan - Patient Problems (1) MDD (major depressive disorder) Current Visit: Yes Status: Acute F32.9 Treatment Plan Resume Zoloft Patient admitted for inpatient psychiatric evaluation, medication adjustment and close monitoring The patient's behavior, mood, sleep and appetite will be closely monitored. Patient enrolled in individual and group therapeutic sessions and encouraged to attend. Patient provided with a safe and structured environment. Patient's physical health needs will be addressed by the Hospitalist. Hospitalist Consulted Labs including CBC, CMP, Lipid profile and Hemoglobin A1C levels ordered for baseline reference Social Assessment will be completed and the Financial Services Assistant will work with patient and family to ensure a suitable and safe disposition Medication adjustment will be made as clinically indicated Usual Wellness Alevism/Preservation: - Start Trazodone 50 mg po QHS & 50 mg po QHS PRN between 10 PM & 2 AM for insomnia - Start Melatonin 5 mg po QHS to promote circadian rhythm - Start [place]-3 for brain health, reduce impulsivity, and as adjunctive treatment for mood disorder, continue upon discharge given overall benefits. - Start B1 prophylaxis with 200 mg po for 5 days The patient agreed on the treatment plan, understood the risk, benefit, alternative treatment, potential consequence of no treatment, and gave informed consent. Initial Certification Inpatient psych services: I certify that the inpatient psychiatric services are required for treatment that could reasonably be expected to improve the patient's condition. Estimated days: 3 Post hospital care: primary care provider, psychiatric provider Assessment and Plan - Patient Problems (1) MDD (major depressive disorder) Current Visit: Yes Status: Acute Medications and Allergies Allergies Allergy/AdvReac Type Severity Reaction Status Date / Time No Known Allergies Allergy Unverified 10/22/20 16:39 Home Medications Medication Instructions Recorded Confirmed Last Taken Type Aspirin EC [Halfprin EC] 81 mg PO QDAY 10/24/20 10/24/20 Unknown History AtorvaSTATin [Lipitor] 20 mg PO QHS 10/24/20 10/24/20 Unknown History Carbidopa/Levodopa ER 50-200 2 each PO TID 10/24/20 10/24/20 Unknown History [Sinemet ER 50/200] Metoprolol Xl [Metoprolol 25 mg PO QDAY 10/24/20 10/24/20 Unknown History SUCCINATE ER TAB] rOPINIRole [Requip] 1 mg PO BID 10/24/20 10/24/20 Unknown History Active Meds: Active Medications Aspirin (Aspirin 81 Mg Tab Chew) 81 mg PO QDAY [facility] [place] Last Admin: 10/26/20 09:33 Dose: 81 mg Documented by: Atorvastatin Calcium (Atorvastatin 20 Mg Tab) 20 mg PO QHS [facility] [place] Last Admin: 10/26/20 22:00 Dose: 20 mg Documented by: Carbidopa/Levodopa (Carbidopa/Levodopa Er 50-200 Mg Tab) 2 each PO TID [facility] Last Admin: 10/26/20 22:00 Dose: 2 each Documented by: Gabapentin (Gabapentin 400 Mg Cap) 400 mg PO TID [facility] Last Admin: 10/26/20 22:00 Dose: 400 mg Documented by: Melatonin (Melatonin 5 Mg Tab) 5 mg PO QHS PRN PRN Reason: Sleep Last Admin: 10/26/20 22:00 Dose: 5 mg Documented by: Metoprolol Succinate (Metoprolol Succinate Xl 50 Mg Tab) 25 mg PO QDAY [facility] Last Admin: 10/26/20 09:35 Dose: 25 mg Documented by: Sertraline HCl (Sertraline 50 Mg Tab) 50 mg PO QDAY [facility] Last Admin: 10/26/20 09:33 Dose: 50 mg Documented by: Results - Results Labs/Vitals: Laboratory Last Values WBC 11.4 K/mm3 (4.5-11.0) H 10/23/20 09:43 RBC 4.95 M/mm3 (3.65-5.03) 10/23/20 09:43 Hgb 15.0 gm/dl (11.8-15.2) 10/23/20 09:43 Hct 44.1 % (35.5-45.6) 10/23/20 09:43 MCV 89 fl (84-94) 10/23/20 09:43 MCH 30 pg (28-32) 10/23/20 09:43 MCHC 34 % (32-34) 10/23/20 09:43 RDW 13.4 % (13.2-15.2) 10/23/20 09:43 Plt Count 195 K/mm3 (140-440) 10/23/20 09:43 Lymph % (Auto) 8.5 % (13.4-35.0) L 10/23/20 09:43 [place] % (Auto) 8.9 % (0.0-7.3) H 10/23/20 09:43 Eos % (Auto) 0.1 % (0.0-4.3) 10/23/20 09:43 Baso % (Auto) 0.4 % (0.0-1.8) 10/23/20 09:43 Lymph # (Auto) 1.0 K/mm3 (1.2-5.4) L 10/23/20 09:43 [place] # (Auto) 1.0 K/mm3 (0.0-0.8) H 10/23/20 09:43 Eos # (Auto) 0.0 K/mm3 (0.0-0.4) 10/23/20 09:43 Baso # (Auto) 0.0 K/mm3 (0.0-0.1) 10/23/20 09:43 Seg Neutrophils % 82.1 % (40.0-70.0) H 10/23/20 09:43 Seg Neutrophils # 9.3 K/mm3 (1.8-7.7) H 10/23/20 09:43 Sodium 140 mmol/L (137-145) 10/23/20 09:43 Potassium 4.0 mmol/L (3.6-5.0) 10/23/20 09:43 Chloride 101.5 mmol/L (98-107) 10/23/20 09:43 Carbon Dioxide 30 mmol/L (22-30) 10/23/20 09:43 Anion Gap 13 mmol/L 10/23/20 09:43 BUN 17 mg/dL (9-20) 10/23/20 09:43 Creatinine 0.8 mg/dL (0.8-1.3) 10/23/20 09:43 Estimated GFR > 60 ml/min 10/23/20 09:43 BUN/Creatinine Ratio 21 % 10/23/20 09:43 Glucose 130 mg/dL (75-100) H 10/23/20 09:43 Hemoglobin A1c 5.6 % (4-6) 10/23/20 09:43 Calcium 8.8 mg/dL (8.4-10.2) 10/23/20 09:43 Total Bilirubin 2.20 mg/dL (0.1-1.2) H 10/23/20 09:43 AST 74 units/L (5-40) H 10/23/20 09:43 ALT 27 units/L (7-56) 10/23/20 09:43 Alkaline Phosphatase 97 units/L (35-129) 10/23/20 09:43 Total Protein 6.7 g/dL (6.3-8.2) 10/23/20 09:43 Albumin 3.7 g/dL (3.9-5) L 10/23/20 09:43 Albumin/Globulin Ratio 1.2 % 10/23/20 09:43 Triglycerides 82 mg/dL (2-149) 10/23/20 09:43 Cholesterol 125 mg/dL (50-199) 10/23/20 09:43 LDL Cholesterol Direct 74 mg/dL (50-130) 10/23/20 09:43 HDL Cholesterol 43 mg/dL (40-59) 10/23/20 09:43 Cholesterol/HDL Ratio 2.90 % 10/23/20 09:43 Last Vital Signs Temp 98.2 F 10/26/20 20:26 Pulse 78 10/26/20 20:26 Resp 18 10/26/20 20:26 BP 122/76 10/26/20 20:26 Pulse Ox 95 10/26/20 20:26
[2020-10-27] MEDS: METOPROLOL SUCCINATE XL 50 MG TAB PO SCH (10:00)
[2020-10-27] MEDS: GABAPENTIN 400 MG CAP PO SCH ×3 (10:01→21:40)
[2020-10-27] MEDS: LEVODOPA PO SCH ×3 (10:01→21:41)
[2020-10-27] MEDS: CARBIDOPA PO SCH ×3 (10:01→21:41)
[2020-10-27] MEDS: ASPIRIN 81 MG TAB CHEW PO SCH (10:01)
[2020-10-27] MEDS: SERTRALINE 50 MG TAB PO SCH (10:03)
--- NOTE | 2020-10-28 08:54 | Progress Note ---
Subjective Date of service: 10/28/20 Principal diagnosis: MDD Subjective Comment: Psych Nurse: pt was present for majority of group duration. pt sat quietly majority of group, slept, and listened to the music. pt was grateful to receive his popcorn for "popcorn Monday" aeb stating "thank you". pt took his popcorn and dosed back off to sleep. during group, pt did wake up to eat some of his popcorn. Psych Progress Patient describes a good and stable mood, denies being depressed or excessively nervous. Patient eats and sleeps well. Patient denies panic attacks, recurrent nightmares or flashbacks. Patient denies symptoms suggestive of OCD or PTSD. Patient denies hallucinations, paranoia, thought interference and no features suggestive of hypomania or solomon. Patiently completely denies suicidal or homicidal thoughts. Reason for continuing acute inpatient psychiatric hospitalization: Planning for safety discharge at this time with outpatient therapy. REVIEW OF SYSTEMS Constitutional: Negative for weight loss ENT: Negative for stridor Respiratory: Negative for cough or hemoptysis All other systems reviewed and are negative MENTAL STATUS EXAMINATION General Appearance and Behavior: Age appropriate, good hygiene, wearing appropriate clothes,, good eye contact Cooperation: Participating/engaged, but Guarded Psychomotor Behavior: Psychomotor normal Mood: just ok Affect and affective range: flat Thought Process: logical Thought Content: within reality Speech: Normal rate, volume and rythm Intellectual Functioning: Average Suicidal Ideation: denies Homicidal Ideation: Denies HI Impulse Control: Impaired Insight and Judgment: Limited insight and judgment Memory: Normal Attention: Normal Orientation: Alert, oriented Assessment and Plan - Patient Problems (1) MDD (major depressive disorder) Current Visit: Yes Status: Acute F32.9 Treatment Plan Resume Zoloft Patient admitted for inpatient psychiatric evaluation, medication adjustment and close monitoring The patient's behavior, mood, sleep and appetite will be closely monitored. Patient enrolled in individual and group therapeutic sessions and encouraged to attend. Patient provided with a safe and structured environment. Patient's physical health needs will be addressed by the Hospitalist. Hospitalist Consulted Labs including CBC, CMP, Lipid profile and Hemoglobin A1C levels ordered for baseline reference Social Assessment will be completed and the Shake Backboard Notcher will work with patient and family to ensure a suitable and safe disposition Medication adjustment will be made as clinically indicated Usual Wellness Anabaptism/Preservation: - Start Trazodone 50 mg po QHS & 50 mg po QHS PRN between 10 PM & 2 AM for insomnia - Start Melatonin 5 mg po QHS to promote circadian rhythm - Start [place]-3 for brain health, reduce impulsivity, and as adjunctive treat ment for mood disorder, continue upon discharge given overall benefits. - Start B1 prophylaxis with 200 mg po for 5 days The patient agreed on the treatment plan, understood the risk, benefit, alter [place] treatment, potential consequence of no treatment, and gave informed consent. Initial Certification Inpatient psych services: I certify that the inpatient psychiatric services are required for treatment that could reasonably be expected to improve the patient's condition. Estimated days: 3 Post hospital care: primary care provider, psychiatric provider Assessment and Plan - Patient Problems (1) MDD (major depressive disorder) Current Visit: Yes Status: Acute Medications and Allergies Allergies Allergy/AdvReac Type Severity Reaction Status Date / Time No Known Allergies Allergy Unverified 10/22/20 16:39 Home Medications Medication Instructions Recorded Confirmed Last Taken Type Aspirin EC [Halfprin EC] 81 mg PO QDAY 10/24/20 10/24/20 Unknown History AtorvaSTATin [Lipitor] 20 mg PO QHS 10/24/20 10/24/20 Unknown History Carbidopa/Levodopa ER 50-200 2 each PO TID 10/24/20 10/24/20 Unknown History [Sinemet ER 50/200] Metoprolol Xl [Metoprolol 25 mg PO QDAY 10/24/20 10/24/20 Unknown History SUCCINATE ER TAB] rOPINIRole [Requip] 1 mg PO BID 10/24/20 10/24/20 Unknown History Active Meds: Active Medications Aspirin (Aspirin 81 Mg Tab Chew) 81 mg PO QDAY [facility] Last Admin: 10/27/20 10:01 Dose: 81 mg Documented by: Atorvastatin Calcium (Atorvastatin 20 Mg Tab) 20 mg PO QHS [facility] Last Admin: 10/27/20 21:41 Dose: 20 mg Documented by: Carbidopa/Levodopa (Carbidopa/Levodopa Er 50-200 Mg Tab) 2 each PO TID [facility] Last Admin: 10/27/20 21:41 Dose: 2 each Documented by: Gabapentin (Gabapentin 400 Mg Cap) 400 mg PO TID [facility] Last Admin: 10/27/20 21:40 Dose: 400 mg Documented by: Melatonin (Melatonin 5 Mg Tab) 5 mg PO QHS PRN PRN Reason: Sleep Last Admin: 10/26/20 22:00 Dose: 5 mg Documented by: Metoprolol Succinate (Metoprolol Succinate Xl 25 Mg Tab) 25 mg PO QDAY [facility] Sertraline HCl (Sertraline 50 Mg Tab) 50 mg PO QDAY [facility] Last Admin: 10/27/20 10:03 Dose: 50 mg Documented by: Results - Results Labs/Vitals: Laboratory Last Values WBC 11.4 K/mm3 (4.5-11.0) H 10/23/20 09:43 RBC 4.95 M/mm3 (3.65-5.03) 10/23/20 09:43 Hgb 15.0 gm/dl (11.8-15.2) 10/23/20 09:43 Hct 44.1 % (35.5-45.6) 10/23/20 09:43 MCV 89 fl (84-94) 10/23/20 09:43 MCH 30 pg (28-32) 10/23/20 09:43 MCHC 34 % (32-34) 10/23/20 09:43 RDW 13.4 % (13.2-15.2) 10/23/20 09:43 Plt Count 195 K/mm3 (140-440) 10/23/20 09:43 Lymph % (Auto) 8.5 % (13.4-35.0) L 10/23/20 09:43 [place] % (Auto) 8.9 % (0.0-7.3) H 10/23/20 09:43 Eos % (Auto) 0.1 % (0.0-4.3) 10/23/20 09:43 Baso % (Auto) 0.4 % (0.0-1.8) 10/23/20 09:43 Lymph # (Auto) 1.0 K/mm3 (1.2-5.4) L 10/23/20 09:43 [place] # (Auto) 1.0 K/mm3 (0.0-0.8) H 10/23/20 09:43 Eos # (Auto) 0.0 K/mm3 (0.0-0.4) 10/23/20 09:43 Baso # (Auto) 0.0 K/mm3 (0.0-0.1) 10/23/20 09:43 Seg Neutrophils % 82.1 % (40.0-70.0) H 10/23/20 09:43 Seg Neutrophils # 9.3 K/mm3 (1.8-7.7) H 10/23/20 09:43 Sodium 140 mmol/L (137-145) 10/23/20 09:43 Potassium 4.0 mmol/L (3.6-5.0) 10/23/20 09:43 Chloride 101.5 mmol/L (98-107) 10/23/20 09:43 Carbon Dioxide 30 mmol/L (22-30) 10/23/20 09:43 Anion Gap 13 mmol/L 10/23/20 09:43 BUN 17 mg/dL (9-20) 10/23/20 09:43 Creatinine 0.8 mg/dL (0.8-1.3) 10/23/20 09:43 Estimated GFR > 60 ml/min 10/23/20 09:43 BUN/Creatinine Ratio 21 % 10/23/20 09:43 Glucose 130 mg/dL (75-100) H 10/23/20 09:43 Hemoglobin A1c 5.6 % (4-6) 10/23/20 09:43 Calcium 8.8 mg/dL (8.4-10.2) 10/23/20 09:43 Total Bilirubin 2.20 mg/dL (0.1-1.2) H 10/23/20 09:43 AST 74 units/L (5-40) H 10/23/20 09:43 ALT 27 units/L (7-56) 10/23/20 09:43 Alkaline Phosphatase 97 units/L (35-129) 10/23/20 09:43 Total Protein 6.7 g/dL (6.3-8.2) 10/23/20 09:43 Albumin 3.7 g/dL (3.9-5) L 10/23/20 09:43 Albumin/Globulin Ratio 1.2 % 10/23/20 09:43 Triglycerides 82 mg/dL (2-149) 10/23/20 09:43 Cholesterol 125 mg/dL (50-199) 10/23/20 09:43 LDL Cholesterol Direct 74 mg/dL (50-130) 10/23/20 09:43 HDL Cholesterol 43 mg/dL (40-59) 10/23/20 09:43 Cholesterol/HDL Ratio 2.90 % 10/23/20 09:43 Last Vital Signs Temp 99.1 F 10/27/20 19:48 Pulse 85 10/27/20 19:48 Resp 20 10/27/20 19:48 BP 137/77 10/27/20 19:48 Pulse Ox 96 10/27/20 19:48
[2020-10-28] MEDS: LEVODOPA PO SCH ×3 (09:27→21:06)
[2020-10-28] MEDS: CARBIDOPA PO SCH ×3 (09:27→21:06)
[2020-10-28] MEDS: GABAPENTIN 400 MG CAP PO SCH ×3 (09:28→21:06)
[2020-10-28] MEDS: SERTRALINE 50 MG TAB PO SCH (11:06)
[2020-10-28] MEDS: ASPIRIN 81 MG TAB CHEW PO SCH (11:06)
[2020-10-28] MEDS: METOPROLOL SUCCINATE XL 25 MG TAB PO SCH (11:07)
[2020-10-28] MEDS: MELATONIN 5 MG TAB PO PRN (21:07)
[2020-10-29] MEDS: LEVODOPA PO SCH (07:57)
[2020-10-29] MEDS: CARBIDOPA PO SCH (07:57)
[2020-10-29] MEDS: GABAPENTIN 400 MG CAP PO SCH (07:57)
[2020-10-29 08:40] VITALS: BP 139/77
--- NOTE | 2020-10-29 09:23 | Progress Note ---
Subjective Date of service: 10/29/20 Principal diagnosis: MDD Subjective Comment: Psych Nurse: pt spent last evening in activity room interacting with selected peer, calm and cooperative, able to make needs known, medication compliant, refused snack, no distress noted, will continue to monitor for safety. Psych Progress Patient excited and looking forward to possible discharged today, says he is excited and was wondering why his and son didnt pick him up yesterday. Denies any complaints, says he is doing just fine Reason for continuing acute inpatient psychiatric hospitalization: Planning for safety discharge at this time with outpatient therapy. REVIEW OF SYSTEMS Constitutional: Negative for weight loss ENT: Negative for stridor Respiratory: Negative for cough or hemoptysis All other systems reviewed and are negative MENTAL STATUS EXAMINATION General Appearance and Behavior: Age appropriate, good hygiene, wearing appropriate clothes, good eye contact, cooperative polite with questioning. Cooperation: Participating/engaged Psychomotor Behavior: unremarkable and within normal limits Mood: Good Affect and affective range: congruent with mood Thought Process: Fluent/Logical, Thought Content: Within reality, Speech: Normal volume, Regular rate and rhythm, Intellectual Functioning: Average Suicidal Ideation: Denies SI Homicidal Ideation: Denies HI Impulse Control: Unimpaired Insight and Judgment: Normal insight and judgment, Memory: Normal, Attention: Normal, Orientation: Alert, oriented, Assessment and Plan - Patient Problems (1) MDD (major depressive disorder) Current Visit: Yes Status: Acute F32.9 Treatment Plan Resume Zoloft Patient admitted for inpatient psychiatric evaluation, medication adjustment and close monitoring The patient's behavior, mood, sleep and appetite will be closely monitored. Patient enrolled in individual and group therapeutic sessions and encouraged to attend. Patient provided with a safe and structured environment. Patient's physical health needs will be addressed by the Hospitalist. Hospitalist Consulted Labs including CBC, CMP, Lipid profile and Hemoglobin A1C levels ordered for baseline reference Social Assessment will be completed and the College Teacher will work with pat ient and family to ensure a suitable and safe disposition Medication adjustment will be made as clinically indicated Usual Wellness Taoism/Preservation: - Start Trazodone 50 mg po QHS & 50 mg po QHS PRN between 10 PM & 2 AM for insomnia - Start Melatonin 5 mg po QHS to promote circadian rhythm - Start [place]-3 for brain health, reduce impulsivity, and as adjunctive treatment for mood disorder, continue upon discharge given overall benefits. - Start B1 prophylaxis with 200 mg po for 5 days The patient agreed on the treatment plan, understood the risk, benefit, alternative treatment, potential consequence of no treatment, and gave informed consent. Initial Certification Inpatient psych services: I certify that the inpatient psychiatric services are required for treatment that could reasonably be expected to improve the patient's condition. Estimated days: 2 Post hospital care: primary care provider, psychiatric provider Assessment and Plan - Patient Problems (1) MDD (major depressive disorder) Current Visit: Yes Status: Acute Medications and Allergies Allergies Allergy/AdvReac Type Severity Reaction Status Date / Time No Known Allergies Allergy Unverified 10/22/20 16:39 Home Medications Medication Instructions Recorded Confirmed Last Taken Type Aspirin EC [Halfprin EC] 81 mg PO QDAY 10/24/20 10/24/20 Unknown History AtorvaSTATin [Lipitor] 20 mg PO QHS 10/24/20 10/24/20 Unknown History Carbidopa/Levodopa ER 50-200 2 each PO TID 10/24/20 10/24/20 Unknown History [Sinemet ER 50/200] Metoprolol Xl [Metoprolol 25 mg PO QDAY 10/24/20 10/24/20 Unknown History SUCCINATE ER TAB] rOPINIRole [Requip] 1 mg PO BID 10/24/20 10/24/20 Unknown History Gabapentin 400 mg PO TID #90 capsule 10/28/20 Unknown Rx Sertraline [Zoloft] 50 mg PO QDAY #30 tablet 10/28/20 Unknown Rx Active Meds: Active Medications Aspirin (Aspirin 81 Mg Tab Chew) 81 mg PO QDAY [facility] Last Admin: 10/28/20 11:06 Dose: 81 mg Documented by: Atorvastatin Calcium (Atorvastatin 20 Mg Tab) 20 mg PO QHS [facility] Last Admin: 10/28/20 21:06 Dose: 20 mg Documented by: Carbidopa/Levodopa (Carbidopa/Levodopa Er 50-200 Mg Tab) 2 each PO TID [facility] Last Admin: 10/29/20 07:57 Dose: 2 each Documented by: Gabapentin (Gabapentin 400 Mg Cap) 400 mg PO TID [facility] Last Admin: 10/29/20 07:57 Dose: 400 mg Documented by: Melatonin (Melatonin 5 Mg Tab) 5 mg PO QHS PRN PRN Reason: Sleep Last Admin: 10/28/20 21:07 Dose: 5 mg Documented by: Metoprolol Succinate (Metoprolol Succinate Xl 25 Mg Tab) 25 mg PO QDAY [facility] Last Admin: 10/28/20 11:07 Dose: 25 mg Documented by: Sertraline HCl (Sertraline 50 Mg Tab) 50 mg PO QDAY [facility] Last Admin: 10/28/20 11:06 Dose: 50 mg Documented by: Results - Results Labs/Vitals: Laboratory Last Values WBC 11.4 K/mm3 (4.5-11.0) H 10/23/20 09:43 RBC 4.95 M/mm3 (3.65-5.03) 10/23/20 09:43 Hgb 15.0 gm/dl (11.8-15.2) 10/23/20 09:43 Hct 44.1 % (35.5-45.6) 10/23/20 09:43 MCV 89 fl (84-94) 10/23/20 09:43 MCH 30 pg (28-32) 10/23/20 09:43 MCHC 34 % (32-34) 10/23/20 09:43 RDW 13.4 % (13.2-15.2) 10/23/20 09:43 Plt Count 195 K/mm3 (140-440) 10/23/20 09:43 Lymph % (Auto) 8.5 % (13.4-35.0) L 10/23/20 09:43 [place] % (Auto) 8.9 % (0.0-7.3) H 10/23/20 09:43 Eos % (Auto) 0.1 % (0.0-4.3) 10/23/20 09:43 Baso % (Auto) 0.4 % (0.0-1.8) 10/23/20 09:43 Lymph # (Auto) 1.0 K/mm3 (1.2-5.4) L 10/23/20 09:43 [place] # (Auto) 1.0 K/mm3 (0.0-0.8) H 10/23/20 09:43 Eos # (Auto) 0.0 K/mm3 (0.0-0.4) 10/23/20 09:43 Baso # (Auto) 0.0 K/mm3 (0.0-0.1) 10/23/20 09:43 Seg Neutrophils % 82.1 % (40.0-70.0) H 10/23/20 09:43 Seg Neutrophils # 9.3 K/mm3 (1.8-7.7) H 10/23/20 09:43 Sodium 140 mmol/L (137-145) 10/23/20 09:43 Potassium 4.0 mmol/L (3.6-5.0) 10/23/20 09:43 Chloride 101.5 mmol/L (98-107) 10/23/20 09:43 Carbon Dioxide 30 mmol/L (22-30) 10/23/20 09:43 Anion Gap 13 mmol/L 10/23/20 09:43 BUN 17 mg/dL (9-20) 10/23/20 09:43 Creatinine 0.8 mg/dL (0.8-1.3) 10/23/20 09:43 Estimated GFR > 60 ml/min 10/23/20 09:43 BUN/Creatinine Ratio 21 % 10/23/20 09:43 Glucose 130 mg/dL (75-100) H 10/23/20 09:43 Hemoglobin A1c 5.6 % (4-6) 10/23/20 09:43 Calcium 8.8 mg/dL (8.4-10.2) 10/23/20 09:43 Total Bilirubin 2.20 mg/dL (0.1-1.2) H 10/23/20 09:43 AST 74 units/L (5-40) H 10/23/20 09:43 ALT 27 units/L (7-56) 10/23/20 09:43 Alkaline Phosphatase 97 units/L (35-129) 10/23/20 09:43 Total Protein 6.7 g/dL (6.3-8.2) 10/23/20 09:43 Albumin 3.7 g/dL (3.9-5) L 10/23/20 09:43 Albumin/Globulin Ratio 1.2 % 10/23/20 09:43 Triglycerides 82 mg/dL (2-149) 10/23/20 09:43 Cholesterol 125 mg/dL (50-199) 10/23/20 09:43 LDL Cholesterol Direct 74 mg/dL (50-130) 10/23/20 09:43 HDL Cholesterol 43 mg/dL (40-59) 10/23/20 09:43 Cholesterol/HDL Ratio 2.90 % 10/23/20 09:43 Last Vital Signs Temp 98.4 F 10/28/20 19:35 Pulse 72 10/28/20 19:35 Resp 18 10/28/20 19:35 BP 146/73 10/28/20 19:35 Pulse Ox 98 10/28/20 19:35
[2020-10-29] MEDS: SERTRALINE 50 MG TAB PO SCH (09:28)
[2020-10-29] MEDS: ASPIRIN 81 MG TAB CHEW PO SCH (09:28)
[2020-10-29] MEDS: METOPROLOL SUCCINATE XL 25 MG TAB PO SCH (09:37)
--- NOTE | 2020-11-12 15:53 | Discharge Summary ---
Providers - Providers Date of Admission: 10/23/20 02:28 Date of discharge: 11/12/20 Attending physician: BONY JOHNSON MD 10/22/20 23:13 Consult to Physician [CONS] Routine Comment: Consulting Provider: CLAUDIA ZHANG Physician Instructions: Reason For Exam: psych h&p Primary care physician: COOK JELLY Hospitalization Reason for admission: MDD Condition: Good Hospital course: The patient was provided inpatient psychiatric treatment with safe and supportive environment, group/individual therapy, psychiatric medication, medication adjustment, adverse effect monitor, medical evaluation, medical treatment, social service assessment, social support meeting, placement assessment and psycho-education. The patients mood, cognition, behavior, motivation, compliance to treatment and appreciation on family/social support are improved and stabilized. At the time of discharge, the patient had no suicid al ideas, no homicidal ideas, no aggressive thoughts, no endangering behavior and no debilitating adverse effects. The patient agreed on the treatment plan, understood the risk, benefit, alternative treatment, potential consequence of no treatment, and gave informed consent. Disposition: DC-01 TO HOME OR SELFCARE Allergies/Adverse Reactions: Allergies No Known Allergies Allergy (Unverified 10/22/20 16:39) Vital Signs: Last Vital Signs Temp 98.5 F 10/29/20 06:12 Pulse 75 10/29/20 09:37 Resp 18 10/29/20 06:12 BP 139/77 10/29/20 09:37 Pulse Ox 94 10/29/20 06:12 Last Lab: Laboratory Last Values WBC 11.4 K/mm3 (4.5-11.0) H 10/23/20 09:43 RBC 4.95 M/mm3 (3.65-5.03) 10/23/20 09:43 Hgb 15.0 gm/dl (11.8-15.2) 10/23/20 09:43 Hct 44.1 % (35.5-45.6) 10/23/20 09:43 MCV 89 fl (84-94) 10/23/20 09:43 MCH 30 pg (28-32) 10/23/20 09:43 MCHC 34 % (32-34) 10/23/20 09:43 RDW 13.4 % (13.2-15.2) 10/23/20 09:43 Plt Count 195 K/mm3 (140-440) 10/23/20 09:43 Lymph % (Auto) 8.5 % (13.4-35.0) L 10/23/20 09:43 [place] % (Auto) 8.9 % (0.0-7.3) H 10/23/20 09:43 Eos % (Auto) 0.1 % (0.0-4.3) 10/23/20 09:43 Baso % (Auto) 0.4 % (0.0-1.8) 10/23/20 09:43 Lymph # (Auto) 1.0 K/mm3 (1.2-5.4) L 10/23/20 09:43 [place] # (Auto) 1.0 K/mm3 (0.0-0.8) H 10/23/20 09:43 Eos # (Auto) 0.0 K/mm3 (0.0-0.4) 10/23/20 09:43 Baso # (Auto) 0.0 K/mm3 (0.0-0.1) 10/23/20 09:43 Seg Neutrophils % 82.1 % (40.0-70.0) H 10/23/20 09:43 Seg Neutrophils # 9.3 K/mm3 (1.8-7.7) H 10/23/20 09:43 Sodium 140 mmol/L (137-145) 10/23/20 09:43 Potassium 4.0 mmol/L (3.6-5.0) 10/23/20 09:43 Chloride 101.5 mmol/L (98-107) 10/23/20 09:43 Carbon Dioxide 30 mmol/L (22-30) 10/23/20 09:43 Anion Gap 13 mmol/L 10/23/20 09:43 BUN 17 mg/dL (9-20) 10/23/20 09:43 Creatinine 0.8 mg/dL (0.8-1.3) 10/23/20 09:43 Estimated GFR > 60 ml/min 10/23/20 09:43 BUN/Creatinine Ratio 21 % 10/23/20 09:43 Glucose 130 mg/dL (75-100) H 10/23/20 09:43 Hemoglobin A1c 5.6 % (4-6) 10/23/20 09:43 Calcium 8.8 mg/dL (8.4-10.2) 10/23/20 09:43 Total Bilirubin 2.20 mg/dL (0.1-1.2) H 10/23/20 09:43 AST 74 units/L (5-40) H 10/23/20 09:43 ALT 27 units/L (7-56) 10/23/20 09:43 Alkaline Phosphatase 97 units/L (35-129) 10/23/20 09:43 Total Protein 6.7 g/dL (6.3-8.2) 10/23/20 09:43 Albumin 3.7 g/dL (3.9-5) L 10/23/20 09:43 Albumin/Globulin Ratio 1.2 % 10/23/20 09:43 Triglycerides 82 mg/dL (2-149) 10/23/20 09:43 Cholesterol 125 mg/dL (50-199) 10/23/20 09:43 LDL Cholesterol Direct 74 mg/dL (50-130) 10/23/20 09:43 HDL Cholesterol 43 mg/dL (40-59) 10/23/20 09:43 Cholesterol/HDL Ratio 2.90 % 10/23/20 09:43 - Discharge Diagnoses (1) MDD (major depressive disorder) Status: Acute Core Measure Documentation - Palliative Care Palliative Care/ Comfort Measures: Not Applicable - Core Measures Any of the following diagnoses?: none Exam - Constitutional Vitals: Temp Pulse Resp BP Pulse Ox 98.5 F 75 18 139/77 94 10/29/20 06:12 10/29/20 09:37 10/29/20 06:12 10/29/20 09:37 10/29/20 06:12 General appearance: Present: no acute distress - EENT Eyes: Present: PERRL, EOM intact ENT: hearing intact, clear oral mucosa - Neck Neck: Present: supple, normal ROM - Respiratory Respiratory effort: normal - Abdominal Male genitourinary: Present: deferred Plan Care Plan Goals: Over 35 minutes spent for discharge process, education and behavioral counselling. Goals: Maintain good and stable mental health. Plan of Treatment: The patient should be compliant with medications, not to use drugs and not to drink alcohol. The patient understands that if suicidal ideas, homicidal ideas, or any endangering thoughts arise, the patient should immediately seek for emergent assistance including but not limited to crisis hot line and emergency room. Follow up with outpatient Psychiatrist and PCP within 7 - 14 days of discharge Follow up with: PRIMARY CARE,MD [Primary Care Provider] - 7 Days Prescriptions: Gabapentin 400 mg PO TID #90 capsule Sertraline [Zoloft] 50 mg PO QDAY #30 tablet
== END 2020-10-29 12:15 | disposition home or self-care (01) | DRG 884 ==
LOC: 3A 13:30 → UNDOADMIN 13:30 → 5A 10-23 02:28
PROVIDERS: ADMIT Psychiatry & Neurology Psychiatry; ATTEND Psychiatry & Neurology Psychiatry
DX: F01.51 Vascular dementia, unspecified severity, with behavioral disturbance (principal); R65.11 Systemic inflammatory response syndrome (SIRS) of non-infectious origin with acute organ dysfunction; I67.2 Cerebral atherosclerosis; I10 Essential (primary) hypertension; I25.10 Atherosclerotic heart disease of native coronary artery without angina pectoris; G25.81 Restless legs syndrome; G20 Parkinson's disease; F32.9 Major depressive disorder, single episode, unspecified; Z95.1 Presence of aortocoronary bypass graft
CPT/HCPCS: 36415; 80053; 80061; 83036; 85025; G0378; A9270-GY